=== PATIENT | male | born 1960 | race Caucasian/White ===

== ENCOUNTER 2021-03-11 20:24 | Emergency (ER) | payer BC ==
[2021-03-11 21:34] LABS: BASO % 0.3 % (0.0-1.0); EOS # 0.1 10^3/uL (0.0-0.5); EOS % 0.6 % (0.0-3.0); HEMATOCRIT 42.2 % (42.0-52.0); HEMOGLOBIN 14.9 g/dl (13.5-17.5); LYMPH # 2.1 10^3/uL (1.5-5.0); LYMPH % 21.3 % (24.0-44.0); MEAN CORPUSCULAR HEMOGLOBIN 31.7 pg (27.0-33.0); MEAN CORPUSCULAR HGB CONC 35.3 g/dl (32.0-36.5); MEAN CORPUSCULAR VOLUME 89.8 fl (80.0-96.0); MONO # 0.6 10^3/uL (0.0-0.8); MONO % 5.9 % (2.0-8.0); NEUTROPHILS # 7.1 10^3/uL (1.5-8.5); NEUTROPHILS % 71.5 % (36.0-66.0); PLATELET COUNT, AUTOMATED 195 10^3/uL (150-450); WHITE BLOOD COUNT 9.9 10^3/uL (4.0-10.0)
--- NOTE | 2021-03-11 21:38 | REPVR ---
PROCEDURE INFORMATION: Exam: CT Head Without Contrast Exam date and time: 03/11/2021 9:07 PM Age: 60 years old Clinical indication: Syncope and collapse TECHNIQUE: Imaging protocol: Computed tomography of the head without contrast. Radiation optimization: All CT scans at this facility use at least one of these dose optimization techniques: automated exposure control; mA and/or kV adjustment per patient size (includes targeted exams where dose is matched to clinical indication); or iterative reconstruction. COMPARISON: No relevant prior studies available. FINDINGS: Brain: Normal. No hemorrhage. Unremarkable white matter. No mass effect. Cerebral ventricles: No ventriculomegaly. Paranasal sinuses: Visualized sinuses are unremarkable. No fluid levels. Mastoid air cells: Visualized mastoid air cells are well aerated. Bones/joints: Unremarkable. No acute fracture. Soft tissues: Unremarkable. IMPRESSION: No acute intracranial abnormality. Electronically signed by: Jonathan Buck On 03/11/2021 21:38:07 PM
--- NOTE | 2021-03-11 21:38 | REPVR ---
PROCEDURE INFORMATION: Exam: XR Chest Exam date and time: 03/11/2021 9:12 PM Age: 60 years old Clinical indication: Other: Syncope/near syncope; Additional info: Syncope/near-syncope TECHNIQUE: Imaging protocol: XR of the chest. Views: 1 view. COMPARISON: No relevant prior studies available. FINDINGS: Lungs: Unremarkable. No consolidation. Pleural spaces: Unremarkable. No pleural effusion. No pneumothorax. Heart/Mediastinum: Unremarkable. No cardiomegaly. Bones/joints: Unremarkable. IMPRESSION: No acute findings. Electronically signed by: Jonathan Buck On 03/11/2021 21:38:26 PM
[2021-03-11 22:13] LABS: BLOOD UREA NITROGEN 21 MG/DL (7-18); CALCIUM LEVEL 8.3 MG/DL (8.8-10.2); CARBON DIOXIDE LEVEL 22 MEQ/L (21-32); CHLORIDE LEVEL 106 MEQ/L (98-107); CK-MB VALUE MASS 2.2 NG/ML (<3.6); CPK CREATINE PHOSPHOKINASE 158 U/L (39-308); CREATININE FOR GFR 1.15 MG/DL (0.70-1.30); ETHYL ALCOHOL (ETHANOL) 0.073 % (0.000-0.010); GLOMERULAR FILTRATION RATE > 60.0 (>49); GLUCOSE, FASTING 136 MG/DL (70-100); MB/CK RELATIVE INDEX 1.39 (< OR =4); POTASSIUM SERUM 4.3 MEQ/L (3.5-5.1); SODIUM LEVEL 137 MEQ/L (136-145); TROPONIN I < 0.02 NG/ML (< 0.10)
[2021-03-11] MEDS ORDERED: NS 1,000 ML IV ONE (22:50)
[2021-03-11 23:08] VITALS: BP 156/85
--- NOTE | 2021-03-13 16:41 | ECGEPIP ---
[facility] - ED Test Date: 2021-03-11 Pat Name: BRANDIE LR Department: Room: - Gender: Male Senior Design Engineering Specialist: FAUSTINA : 1960 Requested By: AC Dowd Order Number: [id number] Reading MD: Sandra Busch Measurements Intervals [place] Rate: 88 P: 46 [place]: 174 QRS: -10 QRSD: 88 T: 52 QT: 344 QTc: 416 Interpretive Statements Normal sinus rhythm Nonspecific ST and T wave abnormality No prior Electronically Signed on 03-13-2021 16:41:11 EDT by Sandra Busch
== END 2021-03-11 23:35 | disposition home or self-care (01) ==
LOC: M ED 20:24
DX: R55 Syncope and collapse (principal); T40.7X5A Adverse effect of cannabis (derivatives), initial encounter; I10 Essential (primary) hypertension; F10.10 Alcohol abuse, uncomplicated